=== PATIENT | male | born 1990 | race Caucasian/White ===

== ENCOUNTER 2017-12-22 16:52 | Inpatient (IN) | payer OTHER ==
[~2017-12-22] VITALS: Ht 177.8 cm; Wt 69.8 kg
[2017-12-22] MEDS ORDERED: SODIUM CHLORIDE FLUSH 10ML SYR IVF ONE (17:30)
[2017-12-22] MEDS ORDERED: LIDOCAINE-MPF 1%, 2ML ONE (17:32)
[2017-12-22] MEDS ORDERED: LORA10TA3 PO (17:39)
[2017-12-22 18:05] LABS: ALBUMIN 4.3 g/dL (3.4-5.0); ANION GAP 9 mmol/L (5-15); CALCIUM 8.9 mg/dL (8.5-10.1); CHLORIDE 105 mmol/L (98-107); CREATININE 1.13 mg/dL (0.7-1.3)
[2017-12-22 18:12] LABS: CULTURE INDICATED? YES; MICROSCOPIC INDICATED
[2017-12-22 18:30] LABS: BASOPHILS # (AUTO) 0.04 x10^3/uL (0-0.1); BASOPHILS % (AUTO) 0 % (0-1); EOSINOPHILS # (AUTO) 0.03 x10^3/uL (0-0.4); EOSINOPHILS % (AUTO) 0 % (1-7); LYMPHOCYTES # (AUTO) 2.24 x10^3/uL (1-3.4); LYMPHOCYTES % (AUTO) 26 % (22-44); MD SCAN; MEAN CORPUSCULAR HEMOGLOBIN 35.5 pg (27.5-34.5); MEAN CORPUSCULAR HGB CONC 35.2 g/dL (33.2-36.2); MEAN CORPUSCULAR VOLUME 100.9 fL (81-97); MEAN PLATELET VOLUME 7.4 fL (7.4-10.4); MONOCYTES # (AUTO) 1.13 x10^3/uL (0.2-0.8); MONOCYTES % (AUTO) 13 % (2-9); NEUTROPHILS # (AUTO) 5.32 x10^3/uL (1.8-6.8); NEUTROPHILS % (AUTO) 61 % (42-75); PLATELET COUNT 60 x10^3/uL (130-400); RED BLOOD COUNT 4.93 x10^6/uL (4.38-5.82); RED CELL DISTRIBUTION WIDTH 12.8 % (9.4-14.8)
[2017-12-22 18:48] LABS: SYN CELLS COUNTED 2830
[2017-12-22] MEDS ORDERED: KETOROLAC 30 MG/1 ML IVPush ONE (20:00)
[2017-12-22] MEDS ORDERED: AZITHROMYCIN 250 MG TABLET ONE (20:21)
[2017-12-22] MEDS ORDERED: CEFTRIAXONE 1,000 MG in SODIUM CHLORIDE 0.9% 50 ML IV ONE (20:30)
[2017-12-22] MEDS ORDERED: DOCUSATE 100 MG CAPSULE PO PRN (20:30)
[2017-12-22] MEDS ORDERED: POLYETHYLENE GLYCOL 17 GM PACKET PO PRN (20:30)
[2017-12-22] MEDS ORDERED: AZITHROMYCIN 500 MG TABLET PO ONE (20:30)
[2017-12-22] MEDS ORDERED: BISACODYL 10 MG SUPP PR PRN (20:30)
[2017-12-22] MEDS ORDERED: OXYcodone/APAP 5/325MG TABLET PO PRN (20:30)
[2017-12-22] MEDS ORDERED: PROMETHAZINE 25 MG/ML, 1ML IM PRN (20:30)
[2017-12-22] MEDS ORDERED: morphine SULFATE 10 MG/ML, 1ML IVPush PRN (20:30)
[2017-12-22] MEDS ORDERED: ONDANSETRON ODT 4 MG PO PRN (20:30)
[2017-12-22] MEDS ORDERED: hydrALAzine 20 MG/ML, 1ML IVPush PRN (20:30)
[2017-12-22] MEDS ORDERED: LABETALOL 5MG/ML, 20ML IVPush PRN (20:30)
[2017-12-22] MEDS ORDERED: ONDANSETRON 2MG/ML, 2ML IVPush PRN (20:30)
[2017-12-22] MEDS: SODIUM CHLORIDE 0.9% 1,000 ML IV SCH (21:17)
[2017-12-22 21:30] LABS: FREE T4 (FREE THYROXINE) 0.93 ng/dL (0.76-1.46); THYROID STIMULATING HORMONE 1.03 mIU/L (0.358-3.740)
[2017-12-22 21:35] LABS: HEMOGLOBIN A1C 4.7 % (4.2-6.3)
[2017-12-22 21:37] VITALS: BP 125/74
[2017-12-23 01:50] VITALS: BP 109/70
[2017-12-23] MEDS: ACETAMINOPHEN 325 MG TABLET PO PRN ×3 (02:37→22:26)
[2017-12-23] MEDS: SODIUM CHLORIDE 0.9% 1,000 ML IV SCH (04:45)
[2017-12-23 05:58] LABS: MEAN CORPUSCULAR HEMOGLOBIN 35.5 pg (27.5-34.5); MEAN CORPUSCULAR HGB CONC 34.8 g/dL (33.2-36.2); RED BLOOD COUNT 4.09 x10^6/uL (4.38-5.82); RED CELL DISTRIBUTION WIDTH 12.5 % (9.4-14.8)
[2017-12-23 06:04] LABS: CHLORIDE 109 mmol/L (98-107)
[2017-12-23 06:11] LABS: ALANINE AMINOTRANSFERASE 13 U/L (12-78); ALBUMIN 3.3 g/dL (3.4-5.0); ALKALINE PHOSPHATASE 54 U/L (45-117); ANION GAP 5 mmol/L (5-15); BILIRUBIN,TOTAL 1.8 mg/dL (0.2-1.0); CALCIUM 8.2 mg/dL (8.5-10.1); CHOL/HDL RATIO 1.3; CHOLESTEROL, TOTAL 68 mg/dL (140-239); CREATININE 0.99 mg/dL (0.7-1.3); HDL CHOL % 75 % (26-37); HDL CHOLESTEROL (DIRECT) 51 mg/dL (40-60); LDL CHOLESTEROL,CALCULATED 9 mg/dL (54-169); LDL/HDL RATIO 0.2 (0.5-3.0); TOTAL PROTEIN 6.6 g/dL (6.4-8.2); TRIGLYCERIDES 41 mg/dL (50-200); VLDL CHOLESTEROL 8 mg/dL (0-25)
[2017-12-23 06:46] LABS: BASOPHILS # (AUTO) 0.02 x10^3/uL (0-0.1); BASOPHILS % (AUTO) 0 % (0-1); EOSINOPHILS # (AUTO) 0.01 x10^3/uL (0-0.4); EOSINOPHILS % (AUTO) 0 % (1-7); LYMPHOCYTES # (AUTO) 1.62 x10^3/uL (1-3.4); LYMPHOCYTES % (AUTO) 17 % (22-44); MD MORPH REVIEW ONLY; MEAN PLATELET VOLUME 7.5 fL (7.4-10.4); MONOCYTES % (AUTO) 13 % (2-9); NEUTROPHILS # (AUTO) 6.75 x10^3/uL (1.8-6.8); NEUTROPHILS % (AUTO) 70 % (42-75); PLATELET COUNT 63 x10^3/uL (130-400)
[2017-12-23 06:47] LABS: <PLATELET ESTIMATE> DECREASED; <PLT MORPHOLOGY> NORMAL PLT MORPH; ANISOCYTOSIS 1+
[2017-12-23 08:47] VITALS: BP 104/64
[2017-12-23] MEDS ORDERED: CEFTRIAXONE 1,000 MG in SODIUM CHLORIDE 0.9% 50 ML IV SCH (09:00)
[2017-12-23 15:07] VITALS: BP 115/64
[2017-12-23 16:26] VITALS: BP 118/71
[2017-12-23 19:20] VITALS: BP 131/75
[2017-12-23] MEDS ORDERED: TRIAMCINOLONE OINT 0.1%, 15GM TP SCH (21:00)
[2017-12-23] MEDS: ERTAPENEM 1 GM in SODIUM CHLORIDE 0.9% 50 ML IV SCH (22:26)
[2017-12-24 02:00] VITALS: BP 116/68
[2017-12-24] MEDS: ACETAMINOPHEN 325 MG TABLET PO PRN ×2 (02:41→22:06)
[2017-12-24 05:58] LABS: CHLORIDE 109 mmol/L (98-107)
[2017-12-24 06:01] LABS: MEAN CORPUSCULAR HEMOGLOBIN 35.9 pg (27.5-34.5); MEAN CORPUSCULAR HGB CONC 35.2 g/dL (33.2-36.2); MEAN CORPUSCULAR VOLUME 102.2 fL (81-97); RED BLOOD COUNT 4.23 x10^6/uL (4.38-5.82); RED CELL DISTRIBUTION WIDTH 12.6 % (9.4-14.8)
[2017-12-24 06:13] LABS: ALANINE AMINOTRANSFERASE 18 U/L (12-78); ALBUMIN 3.4 g/dL (3.4-5.0); ALKALINE PHOSPHATASE 52 U/L (45-117); ANION GAP 8 mmol/L (5-15); BILIRUBIN,TOTAL 1.2 mg/dL (0.2-1.0); CALCIUM 8.6 mg/dL (8.5-10.1); CREATININE 0.88 mg/dL (0.7-1.3)
[2017-12-24 06:16] LABS: HCT (SEDRATE) 41.8 % (39.2-51.8)
[2017-12-24 06:17] LABS: MEAN PLATELET VOLUME 7.8 fL (7.4-10.4); PLATELET COUNT 63 x10^3/uL (130-400)
[2017-12-24 06:19] LABS: BASOPHILS # (AUTO) 0.02 x10^3/uL (0-0.1); BASOPHILS % (AUTO) 0 % (0-1); EOSINOPHILS # (AUTO) 0.02 x10^3/uL (0-0.4); EOSINOPHILS % (AUTO) 0 % (1-7); LYMPHOCYTES # (AUTO) 2.32 x10^3/uL (1-3.4); LYMPHOCYTES % (AUTO) 24 % (22-44); MD SCAN; MONOCYTES # (AUTO) 1.58 x10^3/uL (0.2-0.8); MONOCYTES % (AUTO) 17 % (2-9); NEUTROPHILS # (AUTO) 5.57 x10^3/uL (1.8-6.8); NEUTROPHILS % (AUTO) 59 % (42-75)
[2017-12-24 06:53] VITALS: BP 114/71
[2017-12-24] MEDS: TRIAMCINOLONE CRM 0.1%, 15GM TP SCH ×2 (08:47→21:55)
[2017-12-24] MEDS ORDERED: CEFTRIAXONE 2,000 MG in SODIUM CHLORIDE 0.9% 50 ML IV SCH (09:00)
[2017-12-24 12:12] VITALS: BP 124/77
[2017-12-24 19:11] VITALS: BP 133/89
[2017-12-24] MEDS: ERTAPENEM 1 GM in SODIUM CHLORIDE 0.9% 50 ML IV SCH (21:55)
[2017-12-25 03:06] VITALS: BP 127/75
[2017-12-25] MEDS: ACETAMINOPHEN 325 MG TABLET PO PRN (03:35)
[2017-12-25 06:09] LABS: ANION GAP 9 mmol/L (5-15); CALCIUM 8.6 mg/dL (8.5-10.1); CHLORIDE 106 mmol/L (98-107); CREATININE 0.83 mg/dL (0.7-1.3)
[2017-12-25 06:27] LABS: BASOPHILS # (AUTO) 0.02 x10^3/uL (0-0.1); BASOPHILS % (AUTO) 0 % (0-1); EOSINOPHILS # (AUTO) 0.02 x10^3/uL (0-0.4); EOSINOPHILS % (AUTO) 0 % (1-7); LYMPHOCYTES # (AUTO) 1.67 x10^3/uL (1-3.4); LYMPHOCYTES % (AUTO) 19 % (22-44); MD SCAN; MEAN CORPUSCULAR HEMOGLOBIN 35.5 pg (27.5-34.5); MEAN CORPUSCULAR HGB CONC 35.3 g/dL (33.2-36.2); MEAN CORPUSCULAR VOLUME 100.4 fL (81-97); MEAN PLATELET VOLUME 7.4 fL (7.4-10.4); MONOCYTES # (AUTO) 1.38 x10^3/uL (0.2-0.8); MONOCYTES % (AUTO) 15 % (2-9); NEUTROPHILS % (AUTO) 66 % (42-75); PLATELET COUNT 60 x10^3/uL (130-400); RED BLOOD COUNT 4.13 x10^6/uL (4.38-5.82); RED CELL DISTRIBUTION WIDTH 12.5 % (9.4-14.8)
[2017-12-25 07:09] VITALS: BP 110/68
[2017-12-25] MEDS: TRIAMCINOLONE CRM 0.1%, 15GM TP SCH ×2 (07:51→21:00)
[2017-12-25 12:35] LABS: ANA SCREEN NEGATIVE (Negative)
[2017-12-25] MEDS ORDERED: IBUPROFEN 200 MG TABLET PO PRN (13:30)
[2017-12-25 16:34] VITALS: BP 121/55
[2017-12-25 19:43] VITALS: BP 127/78
[2017-12-25] MEDS: INDOMETHACIN 50 MG CAPSULE PO SCH (21:00)
[2017-12-25] MEDS: ERTAPENEM 1 GM in SODIUM CHLORIDE 0.9% 50 ML IV SCH (21:24)
[2017-12-26 01:22] VITALS: BP 109/63
[2017-12-26 07:11] VITALS: BP 112/54
[2017-12-26] MEDS: TRIAMCINOLONE CRM 0.1%, 15GM TP SCH ×2 (10:08→20:34)
[2017-12-26] MEDS: INDOMETHACIN 50 MG CAPSULE PO SCH ×3 (10:08→20:33)
[2017-12-26 12:22] VITALS: BP 100/65
[2017-12-26 19:45] VITALS: BP 103/65
[2017-12-26] MEDS: ERTAPENEM 1 GM in SODIUM CHLORIDE 0.9% 50 ML IV SCH (20:33)
[2017-12-27 03:55] VITALS: BP 100/61
[2017-12-27 08:00] VITALS: BP 98/59
[2017-12-27] MEDS: INDOMETHACIN 50 MG CAPSULE PO SCH (10:12)
[2017-12-27] MEDS: TRIAMCINOLONE CRM 0.1%, 15GM TP SCH (10:13)
[2017-12-27 13:06] VITALS: BP 100/61
[2017-12-27] MEDS ORDERED: INDO50CA5 PO (16:33)
== END 2017-12-27 17:17 | disposition home or self-care (01) | DRG 546 ==
LOC: ED 20:06 → EDIP 20:10 → 3NE 20:48
PROVIDERS: ADMIT Internal Medicine; ATTEND Internal Medicine
PROC: 0S9D3ZZ Drainage of Left Knee Joint, Percutaneous Approach (ICD-10-PCS; 2017-12-22)
PROC: 0S9D3ZZ Drainage of Left Knee Joint, Percutaneous Approach (ICD-10-PCS; principal; 2017-12-25)
DX: M02.362 Reiter's disease, left knee (principal); D69.3 Immune thrombocytopenic purpura; K59.00 Constipation, unspecified; N34.2 Other urethritis; M17.12 Unilateral primary osteoarthritis, left knee; M79.1 Myalgia; L40.4 Guttate psoriasis; J30.1 Allergic rhinitis due to pollen; Z88.1 Allergy status to other antibiotic agents; Z91.040 Latex allergy status; Z88.0 Allergy status to penicillin; Z91.013 Allergy to seafood
CPT/HCPCS: 20610; 36415; 80048; 80053; 80061; 81001; 81374; 82040; 83036; 83605; 83735; 84439; 84443; 85025; 85651; 85810; 86038; 86140; 86200; 86430; 86480; 86592; 86695; 86696; 86704; 86705; 86706; 86708; 86709; 86803; 87040; 87070; 87086; 87109; 87205; 87340; 87491; 87591; 87806; 87808; 89050; 89051; 89060; 99285; J0696; J1335; G0475; J7030